=== PATIENT | female | born 1985 | race African-American/Black ===

== ENCOUNTER 2024-04-23 12:47 | Emergency (ER) | payer BC, SELFPAY ==
[2024-04-23 13:22] VITALS: BP 159/99
--- NOTE | 2024-04-23 13:35 | ED.GENADULT ---
HPI - General Adult General Chief complaint: Unspecified Stated complaint: High Blood Pressure Time Seen by Provider: 04/23/24 13:35 Source: patient and RN notes reviewed Mode of arrival: ambulatory Limitations: no limitations History of Present Illness HPI narrative: 38-year-old female with history of hypertension presented for complaint of elevated blood pressure today at work (190/111). She reports feeling 'off' this morning, with what she describes as 'cloudy thoughts,' also reports she felt like her eyebrows were lifting but she was not trying to, intermittent hand tingling, and the left side of the face felt swollen. She denies disorientation or confusion, or reports of others not understanding her. States last night she had a headache, and decided not to smoke cigarettes because sometimes smoking causes chest heaviness. Denies vision changes, dizziness, chest pain, palpitations, n/v/d/f/c. Endorses increased stress. Has not been taking blood pressure meds for at least one year, because they were working so she stopped. Smokes about 1/2ppd. Related Data Home Medications Medication Instructions Recorded Confirmed No Home Medications 04/23/24 04/23/24 Allergies Allergy/AdvReac Type Severity Reaction Status Date / Time No Known Allergies Allergy Verified 04/23/24 13:20 Review of Systems Review of Systems: CONSTITUTIONAL: Denies body aches, fever, chills, or sweats. EYES: Denies visual changes, redness, or discharge. ENT: Denies rhinorrhea, congestion, sore throat, or otalgia. CARDIOVASCULAR: Denies chest pain, palpitations, or edema. RESPIRATORY: Denies cough or dyspnea. GASTROINTESTINAL: Denies abdominal pain, nausea, vomiting, or diarrhea. SKIN: Denies rash MUSCULOSKELETAL: Denies back pain, joint pain, or myalgia. NEUROLOGIC: Endorses tingling in face denies headache, numbness, weakness, dizziness All systems reviewed & are unremarkable except as noted in HPI and below PMFSH Past Medical History Medical History (Updated 04/23/24 @ 14:03 by Luba Davison APRN) Hypertension Social History Social History (Updated 04/23/24 @ 13:57 by Luba Davison APRN) Smoking packs per day: 0.5 Smoking cigarettes per day: 10.0 Smoking status: Current every day smoker Tobacco type: cigarettes Comments At time of signature, I have reviewed and agree with nursing past medical, surgical, social and family history unless otherwise noted. Please see nursing chart for further information. There is no relevant family history pertinent to the presenting complaint Exam Narrative: GENERAL: Well-appearing HEAD: Normocephalic, atraumatic. EYES: PERRLA, EOMI. ENT: Mucous membranes pink and moist. No rhinorrhea. NECK: Normal AROM. CHEST: No respiratory distress. Clear to auscultation. HEART: Regular rate and rhythm. No murmur appreciated. Normal peripheral pulses. EXTREMITIES: Normal range of motion. SKIN: Warm, dry, no rash. Capillary refill normal. Normal skin turgor. NEURO:No focal deficits. Alert and oriented x3. EOMs intact without nystagmus. No facial droop/asymmetry noted bilaterally. Grimace intact. Intact sensation in face. Hearing intact bilaterally. Shoulder shrug intact. Strength 5/5 bilateral upper extremities. Ambulatory exam with a normal based, steady gait. PSYCH: Tearful at times. Answers questions appropriately. Course Course Emergency Course: Patient is aware of diagnosis, understands and agrees to treatment plan. Anticipatory guidance given. Patient agrees to follow-up as directed and is aware of reasons to seek care at the emergency department. Portions of this record may have been created with voice recognition software Level of Care: Express Care Visit Vital Signs Vital signs: Vital Signs Blood Pressure 159/99 H 04/23/24 13:22 Blood Pressure 159/99 H 04/23/24 13:22 Transfer Transfered to: [facility] Transportation: Other ([place]
== END 2024-04-23 13:55 | disposition short-term general hospital (02) ==
LOC: EXPTROY 13:03
PROVIDERS: Emergency Provider Nurse Practitioner Family; PCP Nurse Practitioner Family
DX: I10 Essential (primary) hypertension (principal); F17.210 Nicotine dependence, cigarettes, uncomplicated
CPT/HCPCS: 99202; G0463